=== PATIENT | male | born 1980 | race Two or more races ===

== ENCOUNTER 2018-01-22 18:05 | Emergency (ER) | payer OTHER ==
[~2018-01-22] VITALS: Ht 170.2 cm; Wt 81.0 kg
[~2018-01-22 18:05] MED LIST: OXYC-306 PO
[2018-01-22 18:07] VITALS: BP 118/74
[2018-01-22] MEDS ORDERED: DIPH,PERTUSS(ACELL),TET VAC/PF 0.5 ML IM-VACC ONE ×2 (19:00→19:02)
[2018-01-22] MEDS ORDERED: LIDOCAINE 1%, 10ML INFIL ONE (19:00)
[2018-01-22] MEDS ORDERED: LIDOCAINE-MPF 2% ,5ML ONE (19:10)
== END 2018-01-22 21:24 | disposition home or self-care (01) ==
LOC: ED 21:00
DX: S61.211A Laceration without foreign body of left index finger without damage to nail, initial encounter (principal); W31.2XXA Contact with powered woodworking and forming machines, initial encounter; Y93.89 Activity, other specified; Y92.098 Other place in other non-institutional residence as the place of occurrence of the external cause; Y99.8 Other external cause status
CPT/HCPCS: 12041; 90471; 90715; 96372; 99284